=== PATIENT | female | born 1965 | race Caucasian/White ===

== ENCOUNTER → 2021-06-05 12:38 | Outpatient (CLI) | payer OTHER, SELFPAY ==
--- NOTE | 2021-06-05 12:43 | DI.MRI.S_ITS ---
PROCEDURE: MR ANKLE LT WO CON INDICATIONS: Achilles tendinitis, left leg TECHNIQUE: Noncontrast sagittal T1 spin echo and T2 fast spin echo with fat saturation, axial proton density fast spin echo and T2 fast spin echo with fat saturation, coronal T1 spin echo and T2 fast spin echo with fat saturation through the ankle/hindfoot. COMPARISON: [facility], MR, ANKLE WITHOUT CONTRAST, 04/14/2015, 19:39. FINDINGS: Image quality: Excellent. Bones and joints: Susceptibility artifact in the posterior calcaneus, compatible with prior intervention. Small foci of T2 hyperintense signal seen in the distal tibia diaphysis and medial talus, which may reflect contusion. No fracture line is appreciated. No osteochondral injuries of the talar dome. Small tibiotalar joint effusion. Medial structures: The posterior tibialis, flexor digitorum longus, and flexor hallucis longus tendons are intact. The posterior tibial neurovascular bundle appears normal within the tarsal tunnel, without extrinsic mass effect. The deltoid and spring ligaments are intact. Lateral structures: The anterior talofibular, calcaneofibular, and posterior talofibular ligaments appear intact. More superiorly, the anterior and posterior tibiofibular ligaments appear intact, as is the intermalleolar ligament. The tibiofibular syndesmosis is normal in width at 2 mm or less. However, T2 hyperintense signal is seen within the syndesmosis. The peroneus longus and brevis tendons demonstrate normal location and morphology. The sinus tarsi demonstrates normal fatty signal, without edema, fibrosis, or cyst formation. Visualized sinus tarsi components (cervical ligament, interosseous talocalcaneal ligament, roots of the inferior extensor retinaculum) appear normal. Anterior structures: The tibialis anterior, extensor hallucis longus, and extensor digitorum longus tendons appear intact. Posterior and plantar structures: Achilles tendon is intact but thickened at its attachment. Small amount of fluid in the retrocalcaneal bursa. Medial and lateral bands of the plantar fascia are of normal thickness. Medial soft tissue swelling. IMPRESSION: 1. Thickening of the Achilles tendon at its calcaneal attachment, which may reflect tendinopathy. 2. Small amount of fluid in the retrocalcaneal bursa, which may reflect mild bursitis. 3. Small foci in the distal tibial diaphysis and medial talus, which may reflect contusions. Dictated by: Ronal Richard M.D. on 06/05/2021 at 14:40 Approved by: Ronal Richard M.D. on 06/05/2021 at 14:50
== END ==
PROVIDERS: PCP Family Medicine; Referring Provider Podiatrist; Visit Provider Podiatrist
DX: M76.62 Achilles tendinitis, left leg (principal)
CPT/HCPCS: 73721

== ENCOUNTER → 2025-03-11 11:57 | Outpatient (CLI) | payer MEDICARE, SELFPAY ==
--- NOTE | 2025-03-11 12:05 | DI.RAD.S_ITS ---
PROCEDURE: XR FOREARM RT 2V INDICATIONS: R ARM PAIN TECHNIQUE: 2 views of the forearm were acquired. COMPARISON: None. FINDINGS: Bones: No fractures or dislocations. No suspicious bony lesions. Soft tissues: No suspicious soft tissue calcifications or masses. IMPRESSION: No acute bony abnormality. Dictated by: Justin Butt M.D. on 03/11/2025 at 17:28 Approved by: Justin Butt M.D. on 03/11/2025 at 17:29
== END ==
LOC: RAD 12:02
PROVIDERS: PCP Family Medicine; Referring Provider Family Medicine; Visit Provider Family Medicine
DX: M79.601 Pain in right arm (principal)
CPT/HCPCS: 73090